=== PATIENT | male | born 1990 | race Caucasian/White ===

== ENCOUNTER 2019-05-03 01:49 | Emergency (ER) | payer BC ==
--- NOTE | 2019-05-03 02:05 | ERPHSYRPT ---
- History of Present Illness Source: patient, police Exam Limitations: no limitations Timing/Duration: today, improved Severity of Symptoms-Max: moderate Severity of Symptoms-Current: moderate Context related to: other (ex-) Associated Symptoms: depressed, suicidal ideation Previous symptoms: no prior history, no recent treatment Hx Tetanus, Diphtheria Vaccination/Date Given: No <SHERYL STANLEY - Last Filed: 05/03/19 05:24> <ADELAIDA ARORA - Last Filed: 05/03/19 11:28> - History of Present Illness Time Seen by Provider: 05/03/19 02:00 Physician History: pt presents by police with suicidal ideation tonight no injuries or trauma reported and no signs on exam for trauma or injury; pt dnies any overdose attemplt or actual attempt; normal mental status on exam otherwise; pt reports that he actually does not intend to harm himself but got upset talking with his ex- making such statements and since has cooled off and has no actual plan to do this; he denies chest pain, abd pain or symptoms or neuro symptoms (SHERYL STANLEY) Allergies/Adverse Reactions: No Known Drug Allergies Allergy (Verified 05/03/19 03:16) Home Medications: No Reportable Medications [No Reported Medications] 05/03/19 [History] - Past Medical History Pertinent Past Medical History: No - Past Surgical History Past Surgical History: No - Social History Smoking Status: Never smoker Exposure to second hand smoke: No Drug Use: none Patient Lives Alone: No <SHERYL STANLEY - Last Filed: 05/03/19 05:24> - Review of Systems Constitutional: No Fever, No Chills Eyes: No Symptoms Ears, Nose, & Throat: No Symptoms Respiratory: No Cough, No Dyspnea Cardiac: No Chest Pain, No Edema, No Syncope Abdominal/Gastrointestinal: No Abdominal Pain, No Nausea, No Vomiting, No Diarrhea Genitourinary Symptoms: No Dysuria Musculoskeletal: No Back Pain, No Neck Pain Skin: No Rash Neurological: No Dizziness, No Focal Weakness, No Sensory Changes Psychological: No Symptoms, Depression, Suicidal Ideations Endocrine: No Symptoms Hematologic/Lymphatic: No Symptoms Immunological/Allergic: No Symptoms All Other Systems: Reviewed and Negative <SHERYL STANLEY - Last Filed: 05/03/19 05:24> - Physical Exam General Appearance: no apparent distress Eyes, Ears, Nose, Throat Exam: normal ENT inspection, moist mucous membranes Neck Exam: normal inspection, non-tender, supple Respiratory Exam: normal breath sounds, lungs clear, No respiratory distress Cardiovascular Exam: regular rate/rhythm, No edema Gastrointestinal/Abdominal Exam: soft, No tenderness, No distention Extremities Exam: normal inspection, normal range of motion, No evidence of injury, No edema Peripheral Pulses: carotid (R): 2+, carotid (L): 2+, femoral (R): 2+, femoral (L ): 2+, dorsalis-pedis (R): 2+, dorsalis-pedis (L): 2+ Current Suicidality: denies suicide plan Neurological Exam: alert, calm, medical art therapist II-XII nml as tested, oriented x 3 Behavior/Eye Contact/Speech: alert & cooperative, cooperative, good eye contact , normal speech Thoughts/Hallucinations: normal thought pattern, no apparent hallucination Skin Exam: normal color, warm, dry, No rash <SHERYL STANLEY - Last Filed: 05/03/19 05:24> - Nursing Vital Signs Nursing Vital Signs: Initial Vital Signs Pulse Rate 92 H 05/03/19 01:56 Respiratory Rate 16 05/03/19 01:56 Blood Pressure 132/83 05/03/19 01:56 O2 Sat by Pulse Oximetry 97 05/03/19 01:56 Pain Scale Pain Intensity 0 - Course Nursing assessment & vital signs reviewed: Yes EKG Interpreted by Me: Sinus Rhythm, NORMAL AXIS, NORMAL INTERVALS, Non- specific ST Changes <SHERYL STANLEY - Last Filed: 05/03/19 05:24> Ordered Tests: Active Orders 24 hr Category Date Time Status Clean Catch Urine Specimen STAT Care 05/03/19 01:55 Active EKG-ER Only STAT Care 05/03/19 01:55 Active Psychiatric Consult STAT Cons 05/03/19 01:56 Active ACETAMINOPHEN Stat Lab 05/03/19 02:17 Completed CBC W DIFF Stat Lab 05/03/19 02:17 Completed CMP Stat Lab 05/03/19 02:17 Completed ETHYL ALCOHOL Stat Lab 05/03/19 02:17 Completed SALICYLATE Stat Lab 05/03/19 02:17 Completed T4 (Thyroxine) Stat Lab 05/03/19 02:17 Completed TSH [TSH, 3RD Generation] Stat Lab 05/03/19 02:17 Completed UA W/RFX UR CULTURE Stat Lab 05/03/19 03:15 Completed Urine Triage Profile Stat Lab 05/03/19 03:15 Completed Medication Summary Discontinued Medications Generic Name Dose Route Start Last Admin Trade Name Margaret PRN Reason Stop Dose Admin Al Hydrox/Mg Hydrox/Simethicone 20 ml 05/03/19 02:46 05/03/19 03:05 Maalox Es 30 Ml Unit Dose PO 05/03/19 02:47 20 ml STAT ONE Administration Al Hydrox/Mg Hydrox/Simethicone Confirm 05/03/19 03:02 Maalox Es 30 Ml Unit Dose Administered 05/03/19 03:03 Dose 30 ml .ROUTE .STK-MED ONE Potassium Bicarbonate 25 meq 05/03/19 02:46 05/03/19 03:07 K-Lyte 25 Meq PO 05/03/19 02:47 25 meq STAT ONE Administration Potassium Bicarbonate Confirm 05/03/19 03:02 K-Lyte 25 Meq Administered 05/03/19 03:03 Dose 25 meq .ROUTE .STK-MED ONE Lab/Rad Data: Laboratory Result Diagrams 05/03/19 02:17 05/03/19 02:17 Laboratory Results 05/03/19 05/03/19 05/03/19 Range/Units 03:15 03:15 02:17 WBC (4.0-10.5) K/mm3 RBC (4.1-5.6) M/mm3 Hgb (12.5-18.0) gm/dl Hct (42-50) % MCV (78-100) fl MCH (26-32) pg MCHC (32-36) g/dl RDW (11.5-14.0) % Plt Count (150-450) K/mm3 MPV (6-9.5) fl Gran % (36.0-66.0) % Eos # (Auto) (0-0.5) Absolute Lymphs (auto) (1.0-4.6) Absolute Monos (auto) (0.0-1.3) Lymphocytes % (24.0-44.0) % Monocytes % (0.0-12.0) % Eosinophils % (0.00-5.0) % Basophils % (0.0-0.4) % Absolute Granulocytes (1.4-6.9) Basophils # (0-0.4) Sodium (137-145) mmol/L Potassium (3.5-5.1) mmol/L Chloride (98-107) mmol/L Carbon Dioxide (22-30) mmol/L Anion Gap (5-15) MEQ/L BUN (9-20) mg/dL Creatinine (0.66-1.25) mg/dL Estimated GFR ML/MIN Glucose (74-106) mg/dL Calcium (8.4-10.2) mg/dL Total Bilirubin (0.2-1.3) mg/dL AST (17-59) U/L ALT (0-50) U/L Alkaline Phosphatase (38-126) U/L Serum Total Protein (6.3-8.2) g/dL Albumin (3.5-5.0) g/dL Thyroxine (T4) 9.13 (5.53-10.96) ug/dL TSH 3rd Generation 1.580 (0.47-4.68) mIU/L Urine Color STRAW (YELLOW) Urine Appearance CLEAR (CLEAR) Urine pH 7.0 (5-6) Ur Specific [place] 1.004 (1.005-1.025) Urine Protein NEGATIVE (Negative) Urine Ketones NEGATIVE (NEGATIVE) Urine Blood NEGATIVE (0-5) Shine/ul Urine Nitrite NEGATIVE (NEGATIVE) Urine Bilirubin NEGATIVE (NEGATIVE) Urine Urobilinogen NEGATIVE (0-1) mg/dL Ur Leukocyte Esterase NEGATIVE (NEGATIVE) Urine WBC (Auto) NONE (0-5) /HPF Urine RBC (Auto) NONE SEEN (0-2) /HPF U Epithel Cells (Auto) NONE (FEW) /HPF Urine Bacteria (Auto) NONE SEEN (NEGATIVE) /HPF Urine Culture Reflexed NO (NO) Urine Glucose NEGATIVE (NEGATIVE) mg/dL Salicylates (2-20) mg/dL Urine Opiates Level NEGATIVE (NEGATIVE) Ur Methadone NEGATIVE (NEGATIVE) Acetaminophen (10-30) ug/ml Urine Barbiturates NEGATIVE (NEGATIVE) Ur Phencyclidine (PCP) NEGATIVE (NEGATIVE) Urine Amphetamine NEGATIVE (NEGATIVE) U Benzodiazepine Level NEGATIVE (NEGATIVE) Urine Cocaine NEGATIVE (NEGATIVE) Urine Marijuana (THC) NEGATIVE (NEGATIVE) Ethyl Alcohol (0-10) mg/dL 05/03/19 05/03/19 Range/Units 02:17 02:17 WBC 7.4 (4.0-10.5) K/mm3 RBC 5.34 (4.1-5.6) M/mm3 Hgb 15.5 (12.5-18.0) gm/dl Hct 45.6 (42-50) % MCV 85.4 (78-100) fl MCH 29.0 (26-32) pg MCHC 34.0 (32-36) g/dl RDW 12.5 (11.5-14.0) % Plt Count 221 (150-450) K/mm3 MPV 11.6 H (6-9.5) fl Gran % 65.6 (36.0-66.0) % Eos # (Auto) 0.07 (0-0.5) Absolute Lymphs (auto) 1.81 (1.0-4.6) Absolute Monos (auto) 0.65 (0.0-1.3) Lymphocytes % 24.4 (24.0-44.0) % Monocytes % 8.8 (0.0-12.0) % Eosinophils % 0.9 (0.00-5.0) % Basophils % 0.3 (0.0-0.4) % Absolute Granulocytes 4.86 (1.4-6.9) Basophils # 0.02 (0-0.4) Sodium 142 (137-145) mmol/L Potassium 3.4 L (3.5-5.1) mmol/L Chloride 101 (98-107) mmol/L Carbon Dioxide 29 (22-30) mmol/L Anion Gap 15.8 H (5-15) MEQ/L BUN 12 (9-20) mg/dL Creatinine 1.10 (0.66-1.25) mg/dL Estimated GFR > 60.0 ML/MIN Glucose 116 H (74-106) mg/dL Calcium 9.5 (8.4-10.2) mg/dL Total Bilirubin 0.90 (0.2-1.3) mg/dL AST 26 (17-59) U/L ALT 45 (0-50) U/L Alkaline Phosphatase 75 (38-126) U/L Serum Total Protein 7.8 (6.3-8.2) g/dL Albumin 4.6 (3.5-5.0) g/dL Thyroxine (T4) (5.53-10.96) ug/dL TSH 3rd Generation (0.47-4.68) mIU/L Urine Color (YELLOW) Urine Appearance (CLEAR) Urine pH (5-6) Ur Specific [place] (1.005-1.025) Urine Protein (Negative) Urine Ketones (NEGATIVE) Urine Blood (0-5) Shine/ul Urine Nitrite (NEGATIVE) Urine Bilirubin (NEGATIVE) Urine Urobilinogen (0-1) mg/dL Ur Leukocyte Esterase (NEGATIVE) Urine WBC (Auto) (0-5) /HPF Urine RBC (Auto) (0-2) /HPF U Epithel Cells (Auto) (FEW) /HPF Urine Bacteria (Auto) (NEGATIVE) /HPF Urine Culture Reflexed (NO) Urine Glucose (NEGATIVE) mg/dL Salicylates 3.8 (2-20) mg/dL Urine Opiates Level (NEGATIVE) Ur Methadone (NEGATIVE) Acetaminophen < 10 L (10-30) ug/ml Urine Barbiturates (NEGATIVE) Ur Phencyclidine (PCP) (NEGATIVE) Urine Amphetamine (NEGATIVE) U Benzodiazepine Level (NEGATIVE) Urine Cocaine (NEGATIVE) Urine Marijuana (THC) (NEGATIVE) Ethyl Alcohol < 10 (0-10) mg/dL - Progress Progress: improved, re-examined Counseled pt/family regarding: lab results, diagnosis, need for follow-up <SHERYL STANLEY - Last Filed: 05/03/19 05:24> <ADELAIDA ARORA - Last Filed: 05/03/19 11:28> - Progress Progress Note: 05/03/19 05:00 [facility] cannot perform the eval until 0800 today; pt is not yet meeting criteria for [place] act at this time , but would best benefit from the evaulation to minimize his risk and optimize treatment. pt and his insurance would be subjected to excess expense by proceeding to observation in hospital at this time , and so the delay to wait seems to be the best option at this time , since we have several open ER beds which generally remain so until that time. (SHERYL STANLEY) Awaiting Psych shannan 05/03/19 06:39 05/03/19 09:42 mobile crisis the unit called and told me to call Gary for telemetry medicine consult. 05/03/19 10:45 Alex had finished evaluating the patient. I called Gary [phone]. He told me that he needs to talk to the patient again. We will contact patient again to gary.- Dr. Arora 05/03/19 10:46 05/03/19 11:26 patient clearly denies any suicidal ideation plan or intention. Patient has been evaluated by the psych department. The we have a safety plan. We will discharge patient home no life or limb threatening condition on discharge.-Dr. Arora (ADELAIDA ARORA) <SHERYL STANLEY - Last Filed: 05/03/19 05:24> - Departure Departure Disposition: Home Critical Care Time: No <ADELAIDA ARORA - Last Filed: 05/03/19 11:28> - Departure Clinical Impression: Suicidal ideation, Anger reaction Condition: Stable Referrals: MICHELLE WALLIS [ACTIVE STAFF] - 05/04/19 Instructions: Bipolar Disorder (DC) Plan of Treatment: for the safety plan as per gary.
[2019-05-03 02:23] LABS: Absolute Neutrophil Ct (ANC) 4.86 (1.4-6.9); BASOPHIL % 0.3 % (0.0-0.4); Basophil (Absolute #) 0.02 (0-0.4); Eosinophil % 0.9 % (0.00-5.0); Eosinophil (Absolute #) 0.07 (0-0.5); Hematocrit 45.6 % (42-50); Hemoglobin 15.5 gm/dl (12.5-18.0); Lymphocyte (Absolute #) 1.81 (1.0-4.6); Lymphocytes % 24.4 % (24.0-44.0); Mean Cell Volume 85.4 fl (78-100); Mean Platelet Volume 11.6 fl (6-9.5); Monocyte (Absolute #) 0.65 (0.0-1.3); Monocytes % 8.8 % (0.0-12.0); Neutrophil % 65.6 % (36.0-66.0); Platelet Count 221 K/mm3 (150-450); Red Blood Count 5.34 M/mm3 (4.1-5.6); Red Cell Distribution Width 12.5 % (11.5-14.0); White Blood Count 7.4 K/mm3 (4.0-10.5)
[2019-05-03 02:37] LABS: ALBUMIN 4.6 g/dL (3.5-5.0); ALKALINE PHOSPHATASE 75 U/L (38-126); ANION GAP 15.8 MEQ/L (5-15); BLOOD UREA NITROGEN 12 mg/dL (9-20); CHLORIDE 101 mmol/L (98-107); Calcium 9.5 mg/dL (8.4-10.2); Carbon Dioxide 29 mmol/L (22-30); Glucose 116 mg/dL (74-106); Potassium 3.4 mmol/L (3.5-5.1); SALICYLATE 3.8 mg/dL (2-20); SGOT/AST 26 U/L (17-59); SGPT/ALT 45 U/L (0-50); SODIUM 142 mmol/L (137-145); Total Protein 7.8 g/dL (6.3-8.2)
[2019-05-03 02:40] LABS: ACETAMINOPHEN < 10 ug/ml (10-30)
[2019-05-03 02:41] LABS: ETHYL ALCOHOL < 10 mg/dL (0-10)
[2019-05-03] MEDS ORDERED: MAALOX ES 30 ML UNIT DOSE PO ONE (02:46)
[2019-05-03] MEDS ORDERED: K-LYTE 25 MEQ PO ONE (02:46)
[2019-05-03] MEDS ORDERED: MAALOX ES 30 ML UNIT DOSE ONE (03:02)
[2019-05-03] MEDS ORDERED: K-LYTE 25 MEQ ONE (03:02)
[2019-05-03 03:05] LABS: T4 (Thyroxine) 9.13 ug/dL (5.53-10.96); TSH, 3RD Generation 1.58 mIU/L (0.47-4.68)
[2019-05-03 03:22] LABS: Appearance CLEAR (CLEAR); Bilirubin NEGATIVE (NEGATIVE); Blood NEGATIVE Ery/ul (0-5); Glucose NEGATIVE (NEGATIVE); Ketones NEGATIVE (NEGATIVE); Leukocyte Esterase NEGATIVE (NEGATIVE); Nitrite NEGATIVE (NEGATIVE); Protein,Urine Dip NEGATIVE (Negative); Specific Gravity 1.004 (1.005-1.025); Urobilinogen NEGATIVE mg/dL (0-1)
[2019-05-03 03:25] LABS: Bacteria NONE SEEN /HPF (NEGATIVE); RBC NONE SEEN /HPF (0-2)
[2019-05-03 03:34] LABS: Amphetamine,Urine NEGATIVE (NEGATIVE); Barbiturate,Urine NEGATIVE (NEGATIVE); Benzodiazepine,Urine NEGATIVE (NEGATIVE); Cocaine,Urine NEGATIVE (NEGATIVE); Methadone,Urine NEGATIVE (NEGATIVE); Opiate,Urine NEGATIVE (NEGATIVE); PCP,Urine NEGATIVE (NEGATIVE); THC,Urine NEGATIVE (NEGATIVE)
[2019-05-03 11:18] VITALS: BP 121/89; PULSE 76; O2SAT 97
== END 2019-05-03 11:34 | disposition home or self-care (01) ==
LOC: ED 01:49
DX: R45.851 Suicidal ideations (principal); R45.4 Irritability and anger
CPT/HCPCS: 36415; 80053; 80307; 81001; 84436; 84443; 85025; 90791; 93005; 99285; G0481; Q3014; A9270-GY; G0480